=== PATIENT | female | born 1995 | race Caucasian/White ===

== ENCOUNTER 2017-10-21 11:21 | Emergency (ER) | payer MEDICAID, OTHER ==
[~2017-10-21 11:21] MED LIST: PREN1CHW7 PO
[2017-10-21 11:23] VITALS: BP 117/79; PULSE 135; RESP 18; TEMP 97.9; O2SAT 100
[2017-10-21 12:33] LABS: BACTERIA, URINE OCC /hpf; BILIRUBIN, URINE NEG (NEG); BLOOD, URINE SMALL (NEG); GLUCOSE,URINE NEG (NEG); KETONE, URINE NEG (NEG); MUCUS URINE FEW /lpf (OCC); NITRITE,URINE NEG (NEG); SQUAMOUS EPITHELIAL CELL URINE 1 /hpf (0-5); URINE COLOR YELLOW (YELLW/STRAW); URINE LEUKOCYTE ESTERASE LARGE (NEG); WHITE BLOOD CELL CLUMPS FEW
--- NOTE | 2017-10-21 12:39 | PD ---
HPI Chief Complaint: Complaint Time Seen by Provider: 12:18 Travel History International Travel<30 days: No Contact w/Intl Traveler<30days: No Traveled to known affect area: No History of Present Illness HPI 22-year-old 18 week female presents to the ED for evaluation of 3 day history of dysuria, urinary urgency, urinary frequency. Endorses mild left- sided back pain that began yesterday. She denies fever, chills, nausea, vomiting, abdominal pain, vaginal bleeding, vaginal discharge. She states symptoms are similar to previous UTIs. She states that she feels the baby moving and active. She is followed by the women's clinic, next appointment November 05. PFSH Past Medical History ?: Social History Alcohol Use: No Tobacco Use: No Allergies-Medications (Allergen,Severity, Reaction): Coded Allergies: penicillin G (Unverified Allergy, Severe, 09/11/17) Reported Meds & Prescriptions Reported Meds & Active Scripts Active Bactrim DS (Sulfamethoxazole-Trimethoprim) 800-160 Mg Tab 1 Tab PO BID 14 Days Vitafol Gummies 3.33-0.333-34.8 mg ( Vit W/ Ferric Phospha) 1 Chw Chw 3 Tab PO DAILY Review of Systems Except as stated in HPI: all other systems reviewed are Neg Physical Exam Narrative GENERAL: Well-nourished, well-developed white female in no acute distress.. SKIN: Focused skin assessment warm/dry. HEAD: Normocephalic. EYES: No scleral icterus. No injection or drainage. NECK: Supple, trachea midline. No JVD or lymphadenopathy. CARDIOVASCULAR: Regular rate and rhythm without murmurs, gallops, or rubs. RESPIRATORY: Breath sounds equal bilaterally. No accessory muscle use. GASTROINTESTINAL: Abdomen soft, non-tender, nondistended. Active bowel sounds. MUSCULOSKELETAL: No cyanosis, or edema. BACK: Nontender without obvious deformity. NO CVA tenderness. Data Data Last Documented VS Vital Signs Date Time Temp Pulse Resp B/P (MAP) Pulse Ox O2 Delivery O2 Flow Rate FiO2 10/21/17 12:54 96 18 10/21/17 11:23 97.9 100 Orders Orders Urinalysis - C+S If Indicated (10/21/17 12:10) Urine Culture (10/21/17 11:41) Ed Discharge Order (10/21/17 12:54) Labs Laboratory Tests Test 10/21/17 11:41 Urine Color YELLOW Urine Turbidity HAZY Urine pH 8.0 Urine Specific [place] 1.012 Urine Protein 30 mg/dL Urine Glucose (UA) NEG mg/dL Urine Ketones NEG mg/dL Urine Occult Blood SMALL Urine Nitrite NEG Urine Bilirubin NEG Urine Urobilinogen LESS THAN 2.0 MG/DL Urine Leukocyte Esterase LARGE Urine RBC 29 /hpf Urine WBC /hpf Urine WBC Clumps FEW Urine Squamous Epithelial Cells 1 /hpf Urine Bacteria OCC /hpf Urine Mucus FEW /lpf Microscopic Urinalysis Comment CULTURE INDICATED MDM Medical Decision Making Medical Screen Exam Complete: Yes Emergency Medical Condition: Yes Differential Diagnosis Cystitis versus pyelonephritis versus nephroureteral lithiasis versus other Narrative Course 22-year-old 18 week female presents to the ED for evaluation of 3 day history of dysuria, urinary urgency, urinary frequency. Endorses mild left- sided back pain that began yesterday. Denies abdominal pain, vaginal bleeding, vaginal discharge. She states that she feels the baby moving and active. She is followed by the women's clinic, next appointment November 05. Vitals reviewed. Patient is tachycardic in triage but this approves of the exam room. Physical exam is unremarkable. UA leukocyte esterase positive, innumerable WBCs, few clumps, occasional bacteria. This is UTI in , possible early pyelonephritis. Patient is prescribed Bactrim DS twice a day 14 days. She is instructed to take every pill as prescribed until they're all gone, follow-up with the animal rehabilitator, return to the ED for worsening symptoms. She indicated understanding of the instructions and is agreeable to the care plan. She is stable and discharged home. Diagnosis Primary Impression: UTI (urinary tract infection) Qualified Codes: N39.0 - Urinary tract infection, site not specified; R31.9 - Hematuria, unspecified Referrals: [facility] Patient Instructions: General Instructions, Urinary Tract Infection in (ED) Additional Instructions: Rest, hydrate. Begin antibiotics today and take them until every pill is gone. Follow up with your animal rehabilitator. Return to the ED for worsening symptoms or any urgent or emergent medical condition. Med/Other Pt SpecificInfo: Prescription(s) given Scripts Sulfamethoxazole-Trimethoprim (Bactrim DS) 800-160 Mg Tab 1 TAB PO BID for Infection for 14 Days, #28 TAB 0 Refills Prov: Mau Ralph MD 10/21/17 Disposition: 01 DISCHARGE HOME Condition: Stable Tuyet Jiménez Oct 21, 2017 12:39
[2017-10-21] MEDS ORDERED: BACT800T5 PO (12:42)
[2017-10-21 12:54] VITALS: PULSE 96; RESP 18
== END 2017-10-21 13:19 | disposition home or self-care (01) ==
LOC: NEPK 11:21
DX: O23.42 Unspecified infection of urinary tract in pregnancy, second trimester (principal); B95.7 Other staphylococcus as the cause of diseases classified elsewhere; Z3A.18 18 weeks gestation of pregnancy
CPT/HCPCS: 81001; 86403; 87077; 87086; 87186; 99283

== ENCOUNTER 2018-03-09 03:01 | Inpatient (IN) | payer MEDICAID ==
[~2018-03-09] VITALS: Ht 160 cm; Wt 73.0 kg
[2018-03-09] VITALS (32 sets, daily range): BP systolic 103–137; BP diastolic 58–81; PULSE 86–111; RESP 16–18; TEMP 98.1–99
[~2018-03-09 03:01] MED LIST changes: +BACT800T5 PO
[2018-03-09] MEDS ORDERED: LACTATED RINGER'S 1000 ML INJ 1,000 ML IV PRN (03:57)
[2018-03-09] MEDS ORDERED: LACTATED RINGER'S 1000 ML INJ 1,000 ML IV SCH (03:57)
[2018-03-09] MEDS ORDERED: LIDOCAINE HCL 1% 50 ML VIAL INFIL PRN (04:00)
[2018-03-09] MEDS ORDERED: LIDOCAINE HCL 1% 50 ML VIAL I-DERMAL PRN (04:00)
[2018-03-09] MEDS ORDERED: MINERAL OIL 10 ML VIAL TOPICAL PRN (04:00)
[2018-03-09] MEDS ORDERED: CITRIC ACID-SODIUM CITRATE LIQ 30 ML UDC PO SCH (04:00)
[2018-03-09] MEDS ORDERED: SODIUM CHLORID 0.9% 500 ML INJ 500 ML IV PRN (04:00)
[2018-03-09] MEDS ORDERED: OXYTOCIN 30 UNITS-500ML PREMIX 500 ML IV ONE ×2 (04:00→14:00)
[2018-03-09] MEDS ORDERED: ONDANSETRON ODT 4 MG TAB PO PRN ×2 (04:15→14:00)
--- NOTE | 2018-03-09 04:15 | PD ---
HPI Chief Complaint LOF Date Seen: Mar 09, 2018 Time Seen: 04:03 (Teresa Jimenez MD, R1) Travel History International Travel<30 Days: No Contact w/Intl Traveler<30Days: No Known Affected Area: No (Teresa Jimenez MD, R1) History of Present Illness HPI Patient is a 22-year-old female at 39/4 weeks gestation presenting to OB triage due to loss of fluid at home. Patient reports that she woke up at 2 AM and found herself in a puddle of fluid. Endorses movement and intermittent contractions. Denies vaginal bleeding. Denies chest pain, shortness of breath, vision issues, right upper quadrant pain, nausea/vomiting, LE swelling, painful calves, or itchiness. Patient is GBS negative. Weeks Gestation: 39 Para: 2 : 3 Miscarriage: 0 : 0 (Teresa Jimenez MD, R1) History Past Medical History Medical History: Denies Significant Hx (Teresa Jimenez MD, R1) Obstetric History Obstetric History @ 39/4 wks GA x2 No complications with prior pregnancies No complications with this thus far No h/o STDs (Teresa Jimenez MD, R1) Past Surgical History Surgical History: No Previous Surgery (Teresa Jimenez MD, R1) Family History Narrative Family History Father- CHF, DM and HTN (Teresa Jimenez MD, R1) Social History Alcohol Use: No Tobacco Use: No Substance Abuse: No (Teresa Jiemnez MD, R1) Allergies-Medications (Allergen,Severity, Reaction): Coded Allergies: penicillin G (Unverified Allergy, Severe, 09/11/17) Home Meds Active Scripts Sulfamethoxazole-Trimethoprim (Bactrim DS) 800-160 Mg Tab, 1 TAB PO BID for Infection for 14 Days, #28 TAB 0 Refills Prov:Mau Ralph MD 10/21/17 Vit W/ Ferric Phospha (Vitafol Gummies 3.33-0.333-34.8 mg) 1 Chw Chw, 3 TAB PO DAILY, #90 BOTTLE 11 Refills Prov:Dora Rosales 09/11/17 Review of Systems Except as stated in HPI: all other systems reviewed are Neg (Teresa Jimenez MD, R1) Physical Exam Narrative GENERAL: Well-nourished, well-developed patient. SKIN: Warm and dry. HEAD: Normocephalic and atraumatic. EYES: No scleral icterus. No injection or drainage. ENT: No nasal drainage noted. Mucous membranes pink. Airway patent. NECK: Supple, trachea midline. No JVD. CARDIOVASCULAR: Regular rate and rhythm without murmurs, gallops, or rubs. RESPIRATORY: Breath sounds equal bilaterally. No accessory muscle use. ABDOMEN/GI: Abdomen soft, non-tender, bowel sounds present, no rebound, no guarding Gravid to 39/4 weeks size GENITOURINARY: Cervix: midposition Dilatation: 3 Effacement:80 Station: - 2 Membranes: SROM Uterine Contractions: every 3 mins FHT's: Category: 1 Baseline: 135 Reactive: yes Variability: moderate Decels:none EXTREMITIES: No cyanosis or edema. Non tender calves. BACK: Nontender without obvious deformity. No CVA tenderness. NEUROLOGICAL: Awake and alert. Motor and sensory grossly within normal limits. Five out of 5 muscle strength in all muscle groups. Normal speech. (Teresa Jimenez MD, R1) Data Data Vital Signs Reviewed: Yes Orders Orders Ob (2e) Additional Admit Info (03/09/18 03:55) Admit To Inpatient (03/09/18 ) Code Status (03/09/18 03:57) Vital Signs (Adult) .Per protocol (03/09/18 03:57) Activity Oob Ad Shaneka (03/09/18 03:57) Heart (03/09/18 03:57) Amnioinfusion (03/09/18 03:57) Diet Liquid (03/09/18 Breakfast) Lactated Ringer's 1000 Ml Inj (Lr 1000 M (03/09/18 03:57) Lactated Ringer's 1000 Ml Inj (Lr 1000 M (03/09/18 03:57) Sodium Chlorid 0.9% 500 Ml Inj (Ns 500 M (03/09/18 04:00) Sodium Chlor 0.9% 1000 Ml Inj (Ns 1000 M (03/09/18 04:17) Lidocaine 1% Inj (50 Ml) (Xylocaine 1% I (03/09/18 04:00) Citric Acid-Sodium Citrate Liq (Bicitra (03/09/18 04:00) Fentanyl Inj (Fentanyl Inj) (03/09/18 04:00) Fentanyl Inj (Fentanyl Inj) (03/09/18 04:00) Complete Blood Count With Diff (03/09/18 03:57) Hold Clot (03/09/18 03:57) Abo/Rh Blood Type (03/09/18 03:57) Urinalysis - C+S If Indicated (03/09/18 03:57) Drug Screen, Random Urine (03/09/18 03:57) Ob/Psych Drug Screen, Urine (03/09/18 03:57) Type And Screen (03/09/18 03:57) Resp Oxygen Non Rebreathe Mask (03/09/18 ) Oxytocin 30 Units-500ml Premix (Pitocin (03/09/18 04:00) Lidocaine 1% Inj (50 Ml) (Xylocaine 1% I (03/09/18 04:00) Light Mineral Oil (Muri-Lube Oil) (03/09/18 04:00) Inpatient Certification (03/09/18 ) ^ Epidural / Intrathecal Infus (03/09/18 03:57) Group B Strep: Negative (Teresa Jimenez MD, R1) MDM Medical Record Reviewed: Yes Plan Patient is a 22-year-old female at 39/4 weeks gestation presenting to OB triage due to loss of fluid at home. IUP at 39/4 wks gestation -oral hydration -monitor vs -Cat 1, NST reassuring -cervical exam 380/-2 -contraction appx every 3mins -GBS negative -Patient found to be in labor - admit to L&D (Teresa Jimenez MD, R1) Narrative Course / MDM Assessment: Term intrauterine with spontaneous rupture membranes and early labor Plan: Admit for labor management, the patient plans to deliver without epidural. Attending Attestation Patient seen and evaluated with resident under direct supervision, agree with assessment and plan. (Gabo Huffman MD) Diagnosis Diagnosis: Primary Impression: 39 weeks gestation of Additional Impression: SROM (spontaneous rupture of membranes) Teresa Jimenez MD, R1 Mar 09, 2018 04:15 Gabo Huffman MD Mar 09, 2018 05:28
[2018-03-09] MEDS ORDERED: SODIUM CHLOR 0.9% 1000 ML INJ 1,000 ML IV PRN (04:17)
[2018-03-09 05:33] LABS: AUTOMATED NEUTROPHIL # 6.7 TH/MM3 (1.8-7.7); BASOPHIL # 0.1 TH/MM3 (0-0.2); BASOPHIL % 0.7 % (0.0-2.0); EOSINOPHIL # 0.1 TH/MM3 (0-0.4); EOSINOPHIL % 0.7 % (0.0-4.0); HEMATOCRIT 35.3 % (35.0-46.0); HEMOGLOBIN 11.9 GM/DL (11.6-15.3); LYMPH % 25.1 % (9.0-44.0); LYMPHOCYTE # 2.5 TH/MM3 (1.0-4.8); MEAN CELL VOLUME 88.6 FL (80.0-100.0); MEAN CORPUSCULAR HEMOGLOBIN 29.8 PG (27.0-34.0); MEAN CORPUSCULAR HGB CONC 33.6 % (32.0-36.0); MONO % 5.8 % (0.0-8.0); MONOCYTE # 0.6 TH/MM3 (0-0.9); NEUT % 67.7 % (16.0-70.0); PLATELET COUNT 248 TH/MM3 (150-450); RED BLOOD COUNT 3.99 MIL/MM3 (4.00-5.30); RED CELL DISTRIBUTION WIDTH 13.8 % (11.6-17.2); WHITE BLOOD COUNT 9.9 TH/MM3 (4.0-11.0)
[2018-03-09 05:46] LABS: AMORPHOUS SEDIMENT, URINE RARE; BACTERIA, URINE FEW /hpf; BILIRUBIN, URINE NEG (NEG); BLOOD, URINE NEG (NEG); CALCIUM OXALATE CRYSTALS,URINE MANY /hpf; GLUCOSE,URINE NEG (NEG); KETONE, URINE TRACE mg/dL (NEG); MUCUS URINE FEW /lpf (OCC); NITRITE,URINE NEG (NEG); SQUAMOUS EPITHELIAL CELL URINE 10 /hpf (0-5); URINE COLOR YELLOW (YELLW/STRAW); URINE LEUKOCYTE ESTERASE TRACE (NEG)
[2018-03-09] MEDS ORDERED: OXYTOCIN 30 UNITS-500ML PREMIX 500 ML IV PRN (09:00)
[2018-03-09] MEDS ORDERED: LIDOCAINE HCL 1% PF 30 ML VIAL ONE (13:34)
[2018-03-09] MEDS ORDERED: oxyCODONE/ACETAMINOPHEN 5 MG/325 MG TAB PO PRN ×2 (14:00)
[2018-03-09] MEDS ORDERED: ACETAMINOPHEN 325 MG TAB PO PRN (14:00)
[2018-03-09] MEDS ORDERED: DOCUSATE SODIUM 50 MG/SENNA 8.6 MG TAB PO PRN (14:00)
[2018-03-09] MEDS ORDERED: WITCH HAZEL 50%/GLYCERIN 12.5% 40 PAD JAR TOPICAL PRN (14:00)
[2018-03-09] MEDS ORDERED: OXYTOCIN 30 UNITS-500ML PREMIX 500 ML IV SCH (14:00)
[2018-03-09] MEDS ORDERED: OXYTOCIN 10 UNIT/ML AMP XX PRN (14:00)
[2018-03-09] MEDS ORDERED: ZOLPIDEM TARTRATE 5 MG TAB PO PRN (14:00)
[2018-03-09] MEDS ORDERED: SODIUM CHLORIDE 0.9% FLUSH 10 ML FLUSH IV FLUSH SCH (14:00)
[2018-03-09] MEDS ORDERED: SODIUM CHLORIDE 0.9% FLUSH 10 ML FLUSH IV FLUSH PRN (14:00)
[2018-03-09] MEDS ORDERED: BENZOCAINE 20% TOPICAL SPRAY 60 ML CAN TOPICAL PRN (14:00)
[2018-03-09] MEDS ORDERED: ALUMINUM/MAGNESIUM/SIMETH 30 ML CUP PO PRN (14:00)
--- NOTE | 2018-03-09 14:10 | PD.OB.DELI ---
Weeks gestation: 39 Pt started active labor?: No Artificial rupture of membrane: No Anesthesia: None Episiotomy: None Vaginal Delivery: Normal Presentation: Occiput anterior, Compound (left hand presented just head) Nuchal Cord: None Delayed cord clamping (45 sec): Yes : Female, Single Delivery date: Mar 09, 2018 Delivery time: 13:42 One Minute : 9 Five Minute : 9 Placenta: Spontaneous delivery, Intact, 3 vessel cord Laceration: No lacerations Estimated blood loss: 300 ml Kalpesh Bingham MD Mar 09, 2018 14:10
[2018-03-09] MEDS: IBUPROFEN 800 MG TAB PO PRN (15:45)
[2018-03-09] MEDS ORDERED: MEASLES, MUMPS, RUBELLA VACCINE 0.5 ML VIAL SQ ONE (16:00)
[2018-03-09] MEDS ORDERED: DIPHTH/TETANUS/ACEL PERTUSSIS (BOOSTER) 0.5 ML VIAL/PFS IM ONE (16:00)
[2018-03-10] MEDS: IBUPROFEN 800 MG TAB PO PRN (01:50)
--- NOTE | 2018-03-10 07:24 | HHI.OB ---
Subjective Post Day: 1 Remarks day # 1. AFVSS overnight. Pain well-controlled. Lochia much reduced. Denies dysuria. No breast tenderness. Appetite good. No nausea or vomiting. Positive flatus. Positive bowel movement. Ambulating well. Denies calf pain, shortness of breath, or chest pain. Otherwise, she is doing well this morning and has no other complaints. Objective Vitals/I&O Vital Signs Date Time Temp Pulse Resp B/P (MAP) Pulse Ox O2 Delivery O2 Flow Rate FiO2 03/09/18 20:00 98.4 90 18 114/67 (83) 03/09/18 15:35 99.0 03/09/18 15:35 93 17 118/72 (87) 03/09/18 15:00 16 03/09/18 15:00 89 116/73 (87) 03/09/18 14:45 93 108/71 (83) 03/09/18 14:45 16 03/09/18 14:30 92 113/72 (86) 03/09/18 14:30 16 03/09/18 14:15 98.2 16 03/09/18 14:15 101 121/79 (93) 03/09/18 14:00 111 120/69 (86) 03/09/18 13:56 102 110/69 (83) 03/09/18 13:55 16 03/09/18 13:30 95 103/58 (73) 03/09/18 13:30 18 03/09/18 13:05 98.2 03/09/18 13:04 18 03/09/18 13:00 95 125/74 (91) 03/09/18 12:30 89 121/75 (90) 03/09/18 12:15 18 03/09/18 12:00 90 113/76 (88) 03/09/18 11:45 18 03/09/18 11:30 98 119/80 (93) 03/09/18 11:12 98.1 18 03/09/18 11:00 99 118/81 (93) 03/09/18 10:42 18 03/09/18 10:30 98 116/76 (89) 03/09/18 10:22 86 114/73 (87) 03/09/18 10:22 18 03/09/18 10:02 18 03/09/18 10:01 110 122/75 (91) 03/09/18 10:00 18 03/09/18 09:26 105 137/72 (93) 03/09/18 09:25 98.4 18 03/09/18 07:28 92 115/72 (86) 03/09/18 07:27 98.4 18 Objective Remarks GENERAL: Well-nourished, well-developed patient. CARDIOVASCULAR: Regular rate and rhythm without murmurs, gallops, or rubs. RESPIRATORY: Breath sounds equal bilaterally. No accessory muscle use. ABDOMEN/GI: Abdomen soft, non-tender. Fundus: Firm, non-tender below umbilicus. GENITOURINARY: Light to moderate bleeding. EXTREMITIES: No cyanosis or edema, non-tender, without signs of DVT. Medications and IVs Current Medications Medications (Trade) Dose Ordered Sig/Drake Route Start Time Stop Time Status Last Admin (Pitocin Inj) 20 units UNSCH X1 PRN XX 03/09/18 14:00 03/10/18 13:59 (NS Flush) 2 ml BID IV FLUSH 03/09/18 14:00 (NS Flush) 2 ml UNSCH PRN IV FLUSH 03/09/18 14:00 (Tylenol) 650 mg Q4H PRN PO 03/09/18 14:00 (Motrin) 800 mg Q8H PRN PO 03/09/18 14:00 03/10/18 01:50 (Percocet 5-325 Mg) 1 tab Q4H PRN PO 03/09/18 14:00 (Percocet 5-325 Mg) 2 tab Q4H PRN PO 03/09/18 14:00 (Americaine 20% Top Spr) 1 spray Q4H PRN TOPICAL 03/09/18 14:00 (Tucks Pads) 1 applic QID PRN TOPICAL 03/09/18 14:00 (Yulissa-Colace) 2 tab Q12H PRN PO 03/09/18 14:00 (Ambien) 5 mg HS PRN PO 03/09/18 14:00 (Mag-Al Plus Susp Liq) 15 ml Q8H PRN PO 03/09/18 14:00 (Zofran Odt) 4 mg Q6H PRN PO 03/09/18 14:00 Assessment/Plan Assessment and Plan 22 y/o female who is PPD#1 s/p , GBS negative -Continue routine care -Motrin and Percocet PRN for pain -Pericolase PRN for constipation -Encouraged OOB. Advised pelvic rest for 6 wks -Will need a follow-up appointment within 6 wks for post- check -Re: ctrl - undecided Discussed with Dr. Bingham Discharge Planning Patient would like to be discharged home today if baby is cleared by mechanical maintenance instructor Meghana Amezcua MD R2 Mar 10, 2018 07:24
[2018-03-10] MEDS ORDERED: IBUP1TAB7 PO (07:48)
--- NOTE | 2018-03-10 07:48 | HHI.DCPOC ---
Discharge Care Plan Diagnosis: (1) Vaginal delivery Report Symptoms to Your Doctor -Temperature above 100.5 degrees -Redness, of incision or excessive or foul smelling drainage -Unusual pain or calf pain -Increased vaginal bleeding -Painful or difficulty urinating -Feelings of extreme sadness or anxiety after 2 weeks Goals to Promote Your Health * To prevent worsening of your condition and complications * To maintain your health at the optimal level Directions to Meet Your Goals Take your medications as prescribed Follow your dietary instruction Follow activity as directed Ensure plenty of rest for recovery Drink fluids for hydration Keep your appointments as scheduled Take your immunizations and boosters as scheduled If your symptoms worsen call your PCP, if no PCP go to Urgent Care Center or Emergency Room Smoking is Dangerous to Your Health. Avoid second hand smoke Call the 24-hour crisis hotline for domestic abuse at Meghana Amezcua MD R2 Mar 10, 2018 07:48
== END 2018-03-10 15:30 | disposition home or self-care (01) | DRG 775 ==
LOC: HOBED 03:01 → H2EB 03:55 → H1EA 15:23
PROVIDERS: ADMIT Obstetrics & Gynecology; ATTEND Obstetrics & Gynecology
PROC: 10E0XZZ Delivery of Products of Conception, External Approach (ICD-10-PCS; principal; 2018-03-09)
DX: O32.6XX0 Maternal care for compound presentation, not applicable or unspecified (principal); Z37.0 Single live birth; Z3A.39 39 weeks gestation of pregnancy
CPT/HCPCS: 80307; 81001; 84112; 85025; 86850; 86900; 86901; 87086; J2590; J7120